=== PATIENT | male | born 1965 | race African-American/Black ===

== ENCOUNTER 2016-11-10 02:28 | Emergency (ER) | payer SELFPAY ==
[~2016-11-10] VITALS: Ht 175.3 cm; Wt 108.9 kg
--- NOTE | 2016-11-10 02:40 | NUR ---
PT PRESENTED TO THE ER WITH A C/O N/V ALL DAY. PT STATED THAT HE IS AN EVERY DAY DRINKER AND HAS NOT HAD ALCOHOL FOR OVER 6 HRS. PT IS AFRAID THAT HE IS IN WITHDRAWL. PT IS ON THE MONITOR AND CONTINUOUS PULSE OX. PT'S RESP ARE EVEN AND UNLABORED. SKIN WNL. NO S/S OF DISTRESS. PT APPEARS SLIGHTLY ANXIOUS.
[2016-11-10] MEDS ORDERED: ONDANSETRON HCL/PF 4 MG/2 ML VIAL IVP ONE (03:00)
[2016-11-10] MEDS ORDERED: ONDANSETRON HCL/PF 4 MG/2 ML VIAL ONE (03:00)
[2016-11-10] MEDS ORDERED: IV NS 0.9% 1,000 ML BAG IV ONE (03:00)
[2016-11-10] MEDS ORDERED: IV NS 0.9% 1,000 ML ONE (03:01)
[2016-11-10] MEDS ORDERED: IV SET PRIMARY 1 EA INFUS.SET MC ONE (03:01)
[2016-11-10 03:07] LABS: BASOPHILS % (AUTO) 0.6 % (0.0-2.0); EOSINOPHILS % (AUTO) 0.3 % (0.0-6.0); HEMATOCRIT 31 % (39-51); HEMOGLOBIN 9.4 g/dL (13.5-17.5); LYMPHOCYTES # (AUTO) 0.8 /CMM (0.8-4.8); LYMPHOCYTES % (AUTO) 16.7 % (20.0-44.0); MEAN CORPUSCULAR HEMOGLOBIN 23 PG (26.0-33.0); MEAN CORPUSCULAR HGB CONC 31 g/dl (31.0-36.0); MEAN CORPUSCULAR VOLUME 75 fL (80-96); MONOCYTES # (AUTO) 0.6 /CMM (0.1-1.30); MONOCYTES % (AUTO) 12.9 % (2.0-12.0); NEUTROPHILS # (AUTO) 3.3 /CMM (1.8-8.9); NEUTROPHILS % (AUTO) 69.5 % (43.0-81.0); PLATELET COUNT (AUTO) 59 /CMM (150-450); RDW COEFFICIENT OF VARIATION 18.1 (11.5-15.0); RED BLOOD CELL COUNT(AUTO) 4.09 MIL/uL (4.5-6.0); WHITE BLOOD COUNT (AUTO) 4.8 K/uL (4.3-11.0)
[2016-11-10 03:34] LABS: ALBUMIN 3.7 g/dL (3.4-5.0); BILIRUBIN,DIRECT 0.4 mg/dL (0.0-0.2); BILIRUBIN,TOTAL 1.1 mg/dL (0.2-1.0); CALCIUM, SERUM 8.6 mg/dL (8.5-10.1); CREATININE 0.6 mg/dL (0.6-1.3); POTASSIUM 3.2 mmol/L (3.5-5.1); TOTAL PROTEIN, SERUM 8.2 g/dL (6.4-8.2)
[2016-11-10 03:44] LABS: LYMPHOCYTES % (MANUAL) 16 % (16-48); MONOCYTES % (MANUAL) 13 % (0-11.0); NEUTROPHILS % (MANUAL) 71 (42-76)
--- NOTE | 2016-11-10 03:46 | NUR ---
URINE SAMPLE OBTAINED AND LAB WAS CALLED FOR P/U.
[2016-11-10 04:23] LABS: APPEARANCE,URINE CLEAR (CLEAR); BILIRUBIN,URINE NEGATIVE (NEGATIVE); BLOOD, URINE 2+ Ery/uL (NEGATIVE); COLOR,URINE YELLOW (YELLOW); KETONES,URINE 2+ (NEGATIVE); LEUKOCYTE ESTERASE ,URINE NEGATIVE (NEGATIVE); NITRITE, URINE NEGATIVE (NEGATIVE); PROTEIN,URINE TRACE mg/dl (NEGATIVE); UGLUCOSE NEGATIVE (NEGATIVE); UROBILINOGEN,URINE 0.2 EU/dL (0.2)
[2016-11-10 04:26] LABS: BACTERIA,URINE None seen /HPF (None Seen); MUCUS,URINE Moderate /LPF (None Seen); SQUAMOUS EPITHELIAL CELL,UR Rare /HPF (None Seen); WBC,URINE NONE SEEN /HPF (0-3)
--- NOTE | 2016-11-10 04:30 | NUR ---
PT AMBULATED TO THE BATHROOM WITH A STEADY GAIT.
--- NOTE | 2016-11-10 05:07 | NUR ---
IV removed. Catheter intact and site benign. Pressure and 4x4 applied to site. No bleeding noted.Patient discharged to home in stable condition. Written and verbal after care instructions given. Patient verbalizes understanding of instruction AND RX. PT AMBULATED OUT WITH A STEADY GAIT. VSS.
[2016-11-10 05:10] VITALS: BP 138/82
== END 2016-11-10 05:10 | disposition home or self-care (01) ==
LOC: ER 02:29
DX: R11.2 Nausea with vomiting, unspecified (principal)
CPT/HCPCS: 36415; 80048; 80076; 80305; 81001; 83690; 85025; 96374; 96375; 99284; A4606; G0480; J2405; J7030; Z7610; 81000-TC

== ENCOUNTER 2017-01-16 15:35 | Emergency (ER) | payer SELFPAY ==
[~2017-01-16] VITALS: Ht 175.3 cm; Wt 106.6 kg
[2017-01-16 15:35] VITALS: BP 140/83
== END 2017-01-16 17:18 | disposition home or self-care (01) ==
LOC: ER 15:36
DX: H57.8 Other specified disorders of eye and adnexa (principal); R04.0 Epistaxis
CPT/HCPCS: 99282; A4606; Z7610; Z7502